=== PATIENT | male | born 1955 | race Caucasian/White ===

== ENCOUNTER → 2023-03-17 04:00 | Outpatient (REF) | payer MEDICARE, OTHER, SELFPAY | LOC: DHSLP 04:00 | PROVIDERS: ATTENDING PHYSICIAN Internal Medicine Cardiovascular Disease; FAMILY PHYSICIAN Family Medicine | DX: G47.19 Other hypersomnia (principal); R06.83 Snoring | CPT/HCPCS: 95800 ==

== ENCOUNTER → 2023-06-04 | Outpatient (REF) | payer MEDICARE, OTHER, SELFPAY | LOC: DHSLP | PROVIDERS: ATTENDING PHYSICIAN Internal Medicine; FAMILY PHYSICIAN Family Medicine | DX: G47.33 Obstructive sleep apnea (adult) (pediatric) (principal) | CPT/HCPCS: 95800 ==

== ENCOUNTER → 2023-08-07 13:04 | Outpatient (REF) | payer MEDICARE, OTHER, SELFPAY | LOC: MRI 3T 13:04 | PROVIDERS: ATTENDING PHYSICIAN Family Medicine | DX: M54.31 Sciatica, right side (principal) | CPT/HCPCS: 72148 ==

== ENCOUNTER → 2023-11-13 20:29 | Outpatient (REF) | payer MEDICARE, OTHER, SELFPAY | LOC: MRI 20:29 | PROVIDERS: ATTENDING PHYSICIAN Orthopaedic Surgery; FAMILY PHYSICIAN Family Medicine; REFERRING PHYSICIAN Orthopaedic Surgery Adult Reconstructive Orthopaedic Surgery | DX: M19.072 Primary osteoarthritis, left ankle and foot (principal); M85.672 Other cyst of bone, left ankle and foot | CPT/HCPCS: 73720; A9575 ==

== ENCOUNTER 2024-06-15 13:54 | Outpatient (RCR) | payer MEDICARE, OTHER, SELFPAY | END 2024-06-15 23:59 | disposition home or self-care (01) | LOC: RPT 13:54 | PROVIDERS: ATTENDING PHYSICIAN Orthopaedic Surgery Adult Reconstructive Orthopaedic Surgery; FAMILY PHYSICIAN Internal Medicine | DX: Z47.1 Aftercare following joint replacement surgery (principal); Z73.6 Limitation of activities due to disability; R26.89 Other abnormalities of gait and mobility; M25.561 Pain in right knee; M62.81 Muscle weakness (generalized); Z96.651 Presence of right artificial knee joint | CPT/HCPCS: 97010; 97110; 97162 ==

== ENCOUNTER 2024-06-22 11:03 | Outpatient (RCR) | payer MEDICARE, OTHER, SELFPAY | END 2024-06-22 13:16 | disposition home or self-care (01) | LOC: RPT 11:03 | PROVIDERS: ATTENDING PHYSICIAN Orthopaedic Surgery Adult Reconstructive Orthopaedic Surgery; FAMILY PHYSICIAN Internal Medicine | DX: Z47.1 Aftercare following joint replacement surgery (principal); Z73.6 Limitation of activities due to disability; R26.89 Other abnormalities of gait and mobility; M25.561 Pain in right knee; M62.81 Muscle weakness (generalized); Z96.651 Presence of right artificial knee joint | CPT/HCPCS: 97010; 97110 ==

== ENCOUNTER 2024-10-08 16:10 | Outpatient (RCR) | payer MEDICARE, OTHER, SELFPAY | END 2024-10-13 14:10 | disposition home or self-care (01) | LOC: RPT 16:10 | PROVIDERS: ATTENDING PHYSICIAN Physical Medicine & Rehabilitation; FAMILY PHYSICIAN Internal Medicine | DX: M54.16 Radiculopathy, lumbar region (principal); M48.062 Spinal stenosis, lumbar region with neurogenic claudication; Z73.6 Limitation of activities due to disability; M25.551 Pain in right hip; M79.604 Pain in right leg | CPT/HCPCS: 97110; 97162 ==

== ENCOUNTER 2025-02-08 13:18 | Emergency (ER) | payer MEDICARE, OTHER, SELFPAY ==
[2025-02-08 13:20] VITALS: BP 158/76
[2025-02-08 13:56] LABS: COVID-19 Antigen Negative (Negative)
--- NOTE | 2025-02-08 14:20 | ED.GENMED ---
History of Present Illness
General
Chief Complaint: Cold/Flu/URI Symptoms
Source: patient
Exam Limitations: none
Time Seen by Provider: 02/08/25 13:39
History of Present Illness
History of Present Illness:
69-year-old otherwise healthy male presents complaining of 4 days worth of fatigue myalgias cough runny nose sneezing and fever. No vomiting. No other complaints at this time
Phy Exam
Physical Exam
Physical Exam:
General: Well-appearing male no acute respiratory distress
HEENT: Normal cephalic atraumatic
Heart: Regular rate and rhythm
Lungs: Clear no wheeze
Abdomen is soft nontender
Extremities: No edema
Sepsis
Sepsis Screening
Sepsis Assessment: Sepsis Ruled Out
Sepsis Screen
Sepsis Screen: Sepsis Ruled Out
Date: 02/08/25
Time: 14:27
Course
Orders/Labs/Results
Orders:
Orders
02/08/25 13:25
COVID-19 Antigen Urgent
Source: Nasal Swab
Influenza A+B Rapid Molecular Urgent
CASSANDRA Source: Nasal Swab
Specimen Description:
02/08/25 13:46
CR Chest - 2 Views Urgent
Comment:
Reason For Exam: fever, cough
Vital Signs
Initial and Last Documented VS:
Initial Vital Signs
Temp Pulse Resp BP Pulse Ox
98.3 F 53 20 158/76 97
02/08/25 13:20 02/08/25 13:20 02/08/25 13:20 02/08/25 13:20 02/08/25 13:20
Last Documented Vital Signs
Temp Pulse Resp BP Pulse Ox
98.3 F 53 20 158/76 97
02/08/25 13:20 02/08/25 13:20 02/08/25 13:20 02/08/25 13:20 02/08/25 13:20
MDM/Problems Addressed
Differential Diagnosis Includes:
Fever cough myalgias fatigue. Consider COVID or flu or pneumonia
Chest x-ray was reviewed negative. He tested positive for influenza A. Vital signs are stable 4 days into illness recommended continue supportive care with fluids and fever control. Stable for discharge
*Pulse Oximetry
SaO2: 97
Oxygen Mode of Delivery: Room air
Patient hypoxic: no
*Critical Care Note
Total Time (30-74mins, 75-104mins- exclusive of procedures): Not Applicable
ED Attending Note
-
Portions of this chart may have been created with voice recognition software.� Occasional wrong word or��sound alike� substitutions may have occurred due to the inherent limitations of voice recognition software.
Discharge Plan
Departure
Patient Disposition: Home (Routine Discharge)
Date of Disposition: 02/08/25
Time of Disposition: 14:26
Patient with high blood pressure during this ER visit?: No
Discharge Problem:
Influenza A
Instructions: Flu in adults (DC)
Prescriptions:
No Action
wowpvhsk-ono-dtec fum-folic ac 1 EACH tablet
1 ea PO DAILY
valsartan-hydrochlorothiazide 1 EACH tablet
1 ea PO DAILY
Azithromycin 250 MG Tablet
250 mg PO DAILY
Patient Comments:
course of 5 days for sinus infection. 03/07/21 is day 4
caffeine 200 MG tablet
200 mg PO PRN PRN (Reason: tired)
amlodipine 5 MG tablet
5 mg PO DAILY
acetaminophen 500 MG tablet
500 mg PO DAILY PRN (Reason: pain)
magnesium citrate [Citroma] 300 ML solution
300 ml PO ONCE
Patient Comments:
for bowel prep for surgery on 03/07/21
naproxen sodium [Aleve] 220 MG tablet
440 mg PO BIDPRN PRN (Reason: pain) Qty: 1 0RF
tramadol 50 MG tablet
50 mg PO TIDPRN PRN (Reason: severe pain) Qty: 10 0RF
Activity Restrictions/Additional Instructions:
Rest. Drink plenty fluids. Use ibuprofen or Tylenol for fever. Return if worse otherwise follow-up with your doctor
Interventions
Interventions:
*General Assessment Last Done: 02/08/25 13:20
*Neglect/Abuse Screening Last Done: 02/08/25 13:20
*ED COVID-19 Vaccine History Last Done: 02/08/25 13:35
*ED Influenza Vaccine History Last Done: 02/08/25 13:35
[facility] Fall Risk Assessment Tool Last Done: 02/08/25 13:35
*Risk Screen - Suicide (C-SSRS) Last Done: 02/08/25 13:35
ED- Pulmonary Assessment Last Done: 02/08/25 13:35
Discharge Date and Time
Print Language: [id number]
[2025-02-08 14:40] VITALS: BP 141/78
== END 2025-02-08 14:41 | disposition home or self-care (01) ==
LOC: EMR 13:18
PROVIDERS: EMERGENCY PHYSICIAN Student in an Organized Health Care Education/Training Program; FAMILY PHYSICIAN Internal Medicine
DX: J10.1 Influenza due to other identified influenza virus with other respiratory manifestations (principal); Z11.52 Encounter for screening for COVID-19
CPT/HCPCS: 99284; 71046; 87502; 87811